=== PATIENT | male | born 1990 | race Caucasian/White ===

== ENCOUNTER → 2023-02-22 09:45 | Outpatient (CLI) | payer OTHER, SELFPAY ==
--- NOTE | ~2023-02-22 | MR_ITS ---
MRI of the lumbar spine Clinical History: Back pain Technique: Axial T2-weighted images, and sagittal T1-weighted, T2-weighted, and and T2 fat-sat images were acquired. Findings: There is no fracture or subluxation of the lumbar spine. Vertebral bodies maintain normal h eight and alignment. No bone marrow signal abnormality seen. No significant disc bulge or herniation seen at any lumbar level. There are mild to moderate facet johnathan int degenerative changes, particularly at the lower lumbar spine. No spinal canal stenosis or neural foraminal narrowing seen. Paravertebral soft tissues are unremarkable. Impression: Facet joint arthropathy, as above. Reviewed, dictated and finalized at location M. Impression: Facet joint arthropathy, as above.
--- NOTE | ~2023-02-22 | MR_ITS ---
MRI of the thoracic spine Clinical History: Back pain Technique: Axial T2-weighted and gradient images, and sagittal T1-weighted, T2-weighted, and STIR lalita ges were acquired. Findings: There is no fracture or subluxation of the thoracic spine. Vertebral bodies maintain normal height and line. No suspicious bone marrow signal abnormality seen. There is disc bulge in the right paracentral region at T7-T8, with minimal flattening of the ventral cord. No other significant disc bulge or herniation seen. No other spinal canal stenosis or cord comp ression identified. No epidural mass or collection seen. No abnormal signal seen in the spinal cord. Paravertebral soft tissues are unremarkable. Impression: Right paracentral disc bulge at T7-T8, with minimal flattening of the ventral cord at this region. Reviewed, dictated and finalized at location M. Impression: Right paracentral disc bulge at T7-T8, with minimal flattening of the ventral c ord at this region.
== END ==
DX: M51.24 Other intervertebral disc displacement, thoracic region (principal)
CPT/HCPCS: 72146; 72148

== ENCOUNTER 2023-09-02 10:17 | Emergency (ER) | payer OTHER, SELFPAY ==
--- NOTE | ~2023-09-02 | CT_ITS ---
EXAMINATION: CT abdomen pelvis w con DATE: 09/02/2023 11:45 INDICATION: Blood in stool. TECHNIQUE: Computed tomography (CT) of the abdomen and pelvis was performed with 100 cc Omnipaque 350 intravenous contrast. The dose-length product was 713.66 mGy-cm. Automated exposure control and iter ative reconstruction technique were employed. COMPARISON: None. FINDINGS: Lung bases unremarkable. Heart size normal. Fatty infiltration of the liver. There are calc ified granulomas of the spleen. The pancreas, adrenal glands and left kidney are unremarkable. There are right renal cysts. No hydronephrosis. Gallbladder is contracted. No significant vascular abnormal ity. No lymphadenopathy. Nonobstructive bowel gas pattern. Mild diffuse thickening of the colon, susp icious for colitis. No acute osseous abnormality. IMPRESSION: 1. Mild diffuse thickening of the colon, suspicious for colitis. Reviewed, dictated and finalized at location B.
[2023-09-02 10:18] VITALS: BP 146/95; PULSE 59; RESP 20; TEMP 36.4; O2SAT 100
--- NOTE | 2023-09-02 10:42 | ED.ABDPAIN ---
HPI - Abdominal Pain General Chief Complaint: Abdominal Pain Stated Complaint: abdominal pain, blood in stool Time Seen by Provider: 09/02/23 10:23 Source: patient Mode of arrival: ambulatory Limitations: no limitations History of Present Illness HPI narrative: Mat is a 32-year-old male patient presenting to the ER today with complaints of lower abdominal pain and noticing blood in his stool this morning. Reports that he did notice blood in his stool earlier this week when he had a hard bowel movement but nothing since then. States that this was dark bloody stool. No history of UC, Crohn's, or IBS. Hemoccult negative Related Data Allergies Allergy/AdvReac Type Severity Reaction Status Date / Time No Known Allergies Allergy Verified 09/02/23 10:21 Review of Systems Review of Systems: Pertinent positives per HPI. Patient denies any fever, chills, rash, headache, visual changes, dizziness, cough, runny nose, sore throat, shortness of breath, chest pain, palpitations, nausea, vomiting, diarrhea, constipation, or any urinary issues. PMFSH Comments At the time of my signature, I reviewed and agree with the nursing past medical, surgical, social, and family history. There is no relevant family history pertinent to the patient complaint. Exam Narrative: General: Well-developed, well nourished, in no apparent distress. Head: Normocephalic, atraumatic. Cardio: Regular rate and rhythm, s1 and s2 normal, no murmur appreciated. Resp: Clear to auscultation bilaterally, no rhonchi, rales, wheezing or rubs. Abdomen: Soft, pliable, bowel sounds present in all quadrants,tender to palpation over the bilateral lower abdomen, no organomegly, no CVAT tenderness. Course Course Emergency Course: Portions of this record may have been created with voice recognition software. Vital Signs Vital signs: Vital Signs Temperature 36.4 C 09/02/23 10:18 Pulse Rate 59 L 09/02/23 10:18 Respiratory Rate 20 09/02/23 10:18 Blood Pressure 146/95 H 09/02/23 10:18 Pulse Oximetry 100 09/02/23 10:18 Oxygen Delivery Room Air 09/02/23 10:18 Temperature 36.4 C 09/02/23 10:18 Pulse Rate 59 L 09/02/23 10:18 Respiratory Rate 20 09/02/23 10:18 Blood Pressure 146/95 H 09/02/23 10:18 Pulse Oximetry 100 09/02/23 10:18 Oxygen Delivery Room Air 09/02/23 10:18 Vital signs reviewed MDM - Abdominal Pain MDM Narrative Medical decision making narrative: At the time of visit patient is resting comfortably on the exam table. Patient appears to be nontoxic. Labs: CBC shows white blood cell count of 7.0, H and H of 15.4 in 45.4, platelet counts 253, chemistry panel is normal, lipase is normal, urinalysis is normal Diagnostics: CT of the abdomen shows suspicion for colitis Plan: I suspect patient has acute colitis. Prescription for ciprofloxacin and metronidazole was sent to the pharmacy. Recommend following up with our GI specialist Dr. Johnson. Supportive measures were discussed with the patient and they voiced understanding discharge instructions and agrees to treatment plan. Return precautions reviewed Differential Diagnosis Differential diagnosis: Likely abdominal pain, acute appendicitis, constipation, diverticulitis, gastroenteritis and other (GI bleed, ulcerative colitis, Crohn's) Lab Data 09/02/23 10:38 09/02/23 10:38 Labs: Lab Results 09/02/23 09/02/23 Range/Units 10:38 10:42 WBC 7.0 (4.5-10.0) K/mm3 RBC 5.01 (4.6-6.20) M/mm3 Hgb 15.4 (14.0-18.0) g/dL Hct 45.4 (42.0-52.0) % MCV 90.6 (80-100) fl MCH 30.7 (26-34) pg MCHC 33.9 (32-36) g/dl RDW 11.9 (11.5-14.5) % Plt Count 253 (150-375) k/mm3 MPV 10.8 H (7.4-10.4) fl Immature Gran % (Auto) 0.4 (0-0.5) % Neut % (Auto) 69.2 (45.5-73.1) % Lymph % (Auto) 18.4 (18.3-44.2) % Eagle % (Auto) 9.0 H (2.6-8.5) % Eos % (Auto) 2.6 (0-4.4) % Baso % (Auto) 0.4 (
[2023-09-02 10:48] LABS: Basophils Percent Auto 0.4 % (0.2-1.2); Eosinophils Absolute Auto 0.2 K/mm3 (0-0.3); Eosinophils Percent Auto 2.6 % (0-4.4); Hematocrit 45.4 % (42.0-52.0); Hemoglobin 15.4 g/dL (14.0-18.0); Immature Granulocyte Absolute 0.03 K/mm3 (0.00-0.031); Immature Granulocyte Percent A 0.4 % (0-0.5); Lymphocytes Absolute Auto 1.29 K/mm3 (0.9-3.2); Lymphocytes Percent Auto 18.4 % (18.3-44.2); Mean Corpuscular HGB Conc 33.9 g/dl (32-36); Mean Corpuscular Hemoglobin 30.7 pg (26-34); Mean Corpuscular Volume 90.6 fl (80-100); Mean Platelet Volume 10.8 fl (7.4-10.4); Monocytes Absolute Auto 0.6 K/mm3 (0.1-0.6); Neutrophils Absolute Auto 4.9 K/mm3 (1.3-6.7); Neutrophils Percent Auto 69.2 % (45.5-73.1); Platelet Count Result 253 k/mm3 (150-375); Red Blood Count 5.01 M/mm3 (4.6-6.20); Red Cell Distribution Width 11.9 % (11.5-14.5)
[2023-09-02 10:48] LABS: Appearance Urine Clear (Clear); Bilirubin Urine Negative (Negative); Blood Urine Negative (Negative); Color Urine Yellow (Yellow); Glucose Urine UA Negative (Negative); Ketones Urine Negative (Negative); Leukocyte Esterase Ur Negative LEU/UL (Negative); Nitrate Urine Negative (Negative); Protein Urine Negative (Negative); Urobilinogen Urine 0.2 mg/dL (<2.0); pH Urine 7.5 (5.0-9.0)
[2023-09-02 10:50] LABS: Add Urine Microscopic? NO
[2023-09-02 10:56] LABS: Alanine Aminotransferase 50 U/L (6-50); Albumin Level 4.7 g/dL (3.5-5.1); Alkaline Phosphatase 52 U/L (38-126); Anion Gap 8 mmol/L (4-12); Aspartate Amino Transferase 35 U/L (17-59); Bilirubin,Total 0.9 mg/dL (0.2-1.3); Blood Urea Nitrogen 14 mg/dL (9-20); Calcium 9.5 mg/dL (8.4-10.2); Carbon Dioxide 26 mmol/L (22-30); Chloride 105 mmol/L (98-107); Estimated CRCL calculation 111 ml/min; Estimated Glomerular Filt Rate > 60; Glucose 109 mg/dL (65-110); Lipase 78 U/L (23-300); Potassium 4.5 mmol/L (3.4-5.0); Sodium 139 mmol/L (137-145)
== END 2023-09-02 12:39 | disposition home or self-care (01) ==
PROVIDERS: Emergency Provider Nurse Practitioner Family
DX: K52.9 Noninfective gastroenteritis and colitis, unspecified (principal)
CPT/HCPCS: 36415; 74177; 80053; 81003; 83690; 85025; 99284; Q9967

== ENCOUNTER 2024-03-14 11:16 | Emergency (ER) | payer OTHER, SELFPAY ==
[2024-03-14 11:26] VITALS: BP 156/110; PULSE 78; RESP 16; TEMP 36.4; O2SAT 100
--- NOTE | 2024-03-14 14:00 | ED_ITS ---
HPI - General Adult General Chief complaint: Back Pain/Injury Stated complaint: lower back pain/L hip pain Time Seen by Provider: 03/14/24 12:57 History of Present Illness HPI narrative: 33-year-old male presented to the emergency department for evaluation for left- sided sciatica. Patient states he injured his leg last weekend and has been dealing with the pain throughout the week. Patient states he attempted to get off the couch today and felt acute worsening the lower back and left hip pain. Patient states the pain starts in his low back radiates to his left hip and down his left leg. Patient states he does have pain that radiates down leg but denies any numbness or weakness. Patient denies any change in bowel or bladder habits. Related Data Allergies Allergy/AdvReac Type Severity Reaction Status Date / Time No Known Allergies Allergy Verified 03/14/24 12:56 Review of Systems Review of Systems: All systems reviewed & are unremarkable except as noted in HPI and below Course Course Emergency Course: Vital Signs Vital signs: Vital Signs Temperature 97.5 F L 03/14/24 11:26 Pulse Rate 78 03/14/24 11:26 Respiratory Rate 16 03/14/24 11:26 Blood Pressure 156/110 H 03/14/24 11:26 Pulse Oximetry 100 03/14/24 11:26 Temperature 97.5 F L 03/14/24 11:26 Pulse Rate 78 03/14/24 11:26 Respiratory Rate 16 03/14/24 11:26 Blood Pressure 156/110 H 03/14/24 11:26 Pulse Oximetry 100 03/14/24 11:[address] [facility] Narrative Medical decision making narrative: 33-year-old male presents emergency department for evaluation for left leg pain that is consistent with sciatica. patient will be started on Medrol Dosepak, provided Flexeril for pain control in addition to [place] for pain control. In the emergency department patient was treated with IM Toradol, p.o. [place] and p.o. Flexeril. Patient was encouraged of close follow-up with his primary care physician. Differential Diagnosis Differential Diagnosis: sciatica, hip strain, lower back pain Vital Signs Vital Signs: Vital Signs Temperature 97.5 F L 03/14/24 11:26 Pulse Rate 78 03/14/24 11:26 Respiratory Rate 16 03/14/24 11:26 Blood Pressure 156/110 H 03/14/24 11:26 Pulse Oximetry 100 03/14/24 11:26 Temperature 97.5 F L 03/14/24 11:26 Pulse Rate 78 03/14/24 11:26 Respiratory Rate 16 03/14/24 11:26 Blood Pressure 156/110 H 03/14/24 11:26 Pulse Oximetry 100 03/14/24 11:26 Discharge Plan Discharge Clinical Impression: Sciatica Patient Disposition: Home, Self-Care Condition: Stable Instructions: Antibiotic Form, Sciatica (ED), Back Pain (ED) Additional Instructions: Medrol Dosepak as directed until completed. Ibuprofen for pain control scheduled for the next few days. [place] as needed for additional pain control. Flexeril for muscle spasm. Continue to have close follow-up with your primary care physician. If you have any worsening symptoms then please call or return to the emergency department. Prescriptions: New methylprednisolone [Medrol (Glenn)] 4 mg tablets,dose pack See Rx Instructions .ROUTE .COMPLEX Qty: 21 0RF Rx Instructions: for 6 days hydrocodone-acetaminophen 5-325 mg tablet 1 tablet PO Q12H PRN (Reason: pain) Qty: 14 0RF cyclobenzaprine 10 mg tablet 10 mg PO BID PRN (Reason: muscle spasm) Qty: 14 0RF No Action ciprofloxacin HCl [Cipro] 500 mg tablet 500 mg PO Q12H 10 Days Qty: 20 0RF metronidazole 500 mg tablet 500 mg PO Q8H 10 Days Qty: 30 0RF Follow-up/Referrals: UNKNOWN,DOCTOR [Primary Care Provider] -
[2024-03-14] MEDS: KETOROLAC 30 MG/ML VIAL (*BKC) IM (14:14)
[2024-03-14] MEDS: HYDROcodone/acetaminophen (*CRX) 5-325 MG TABLET 1 TAB PO (14:14)
[2024-03-14] MEDS: CYCLOBENZAPRINE HCL 10 MG TABLET PO (14:14)
== END 2024-03-14 14:21 | disposition home or self-care (01) ==
PROVIDERS: Emergency Provider Emergency Medicine
DX: M54.42 Lumbago with sciatica, left side (principal)
CPT/HCPCS: 96372; 99283; A9270; J1885